=== PATIENT | female | born 1955 | race African-American/Black ===

== ENCOUNTER → 2018-11-03 | Outpatient (CLI) | payer OTHER ==
[~2018-11-03] MED LIST: PERFLUTREN PROTEIN-A MICROSPHR 0.22 MG/ML 3 ML VIAL. IV ONE
--- NOTE | 2018-11-03 13:14 | PCVCIMAG ---
EXAM: BILATERAL RENAL ULTRASOUND AND BILATERAL RENAL DUPLEX INDICATION: Hypertension FINDINGS: Right kidney: Length measures 10.2 cm. No hydronephrosis or extensive renal scarring. Right renal duplex: Adequate technical quality. No sonographic evidence of renal artery stenosis. The aortic to renal artery ratio is 1.5. The renal vein is patent. Left kidney: Length measures 10.1 cm. No hydronephrosis or extensive renal scarring. Left renal duplex: Adequate technical quality. No sonographic evidence of renal artery stenosis. The aortic to renal artery ratio is 1.4. The renal vein is patent. Bladder: No obvious abnormalities. IMPRESSION: No significant renal artery stenosis. No hydronephrosis bilaterally. Incidental note is made of large shadowing gallstones. Gallbladder otherwise unremarkable. LOC:[id number]
--- NOTE | 2018-11-03 15:30 | PCVCIMAG ---
APPROVED REPORT Study performed: 11/03/2018 09:08:31 EXAM: Comprehensive 2D, Doppler, and color-flow Echocardiogram Patient Location: Echo lab Status: routine BSA: 2.28 HR: 77 bpmBP: 200/110 mmHg Rhythm: NSR Other Information Study Quality: Technically Difficult Indications Hypertension/HDD Echo Enhancing Agent Indication: Endocardial border delineation Agent(s) / Amount(s) Used: Scary Mommy cc 2D Dimensions IVSd: 10.89 (7-11mm)LVOT Diam: 19.77 (18-24mm) LVDd: 44.29 mm PWd: 9.64 (7-11mm)Ascending Ao: 28.73 (22-36mm) LVDs: 32.19 (25-40mm) Left Atrium: 43.26 (27-40mm) Aortic Root: 25.59 mm Aortic Valve AoV Peak Eleazar.: 1.11 m/s AO Peak Gr.: 4.94 mmHgLVOT Max P.90 mmHg LVOT Max V: 0.85 m/s GRISELDA Vmax: 2.35 cm2 Mitral Valve E/A Ratio: 0.6 MV Decel. Time: 252.96 ms MV E Max Eleazar.: 0.50 m/s MV A Eleazar.: 0.85 m/s Pulmonary Valve PV Peak Gr.: 1.72 mmHg Left Ventricle The left ventricle is normal size. There is normal LV segmental wall motion. There is normal left ventricular wall thickness. Left ventricular systolic function is normal. The left ventricular ejection fraction is within the normal range. LVEF is 55-60%. This study is not technically sufficient to allow evaluation of the LV diastolic function. Right Ventricle The right ventricle is normal size. The right ventricular systolic function is normal. Atria The left atrium size is normal. The right atrium size is normal. Aortic Valve The aortic valve is normal in structure. No aortic regurgitation is present. There is no aortic valvular stenosis. Mitral Valve The mitral valve is normal in structure. There is no mitral valve regurgitation noted. No evidence of mitral valve stenosis. Tricuspid Valve The tricuspid valve is normal in structure. There is no tricuspid valve regurgitation noted. Pulmonic Valve The pulmonary valve is normal in structure. There is no pulmonic valvular regurgitation. Great Vessels The aortic root is normal in size. IVC is normal in size and collapses >50% with inspiration. Pericardium There is no pericardial effusion. <Conclusion> The left ventricle is normal size. LVEF is 55-60%. This study is not technically sufficient to allow evaluation of the LV diastolic function. The left atrium size is normal. The aortic valve is normal in structure. There is no mitral valve regurgitation noted. There is no tricuspid valve regurgitation noted. The aortic root is normal in size. There is no pericardial effusion.
== END | disposition home or self-care (01) ==
LOC: PCVCIMAG 07:47
PROVIDERS: ATTEND Family Medicine
DX: K80.20 Calculus of gallbladder without cholecystitis without obstruction (principal); I10 Essential (primary) hypertension; Z68.42 Body mass index [BMI] 45.0-49.9, adult
CPT/HCPCS: 76770; 93975; C8929; Q9956